=== PATIENT | male | born 1960 | race Caucasian/White ===

== ENCOUNTER → 2017-12-10 | Outpatient (CLI) | payer SELFPAY ==
--- NOTE | 2017-12-10 16:19 | DIREP ---
PROCEDURE:MR SHOULDER WITHOUT CONTRAST [Right] TECHNIQUE:Axial proton density fat sat; sagittal oblique T1 and T2 fat sat; coronal oblique proton density fat sat, T2 and inversion recovery sequences were obtained. Images are somewhat noisy which is attributable to patient's body habitus. COMPARISON:None. INDICATIONS:RIGHT SHOULDER PAIN FINDINGS: Rotator cuff: There is at least high-grade partial tear if not full-thickness tear of the distal anterior supraspinatus tendon measuring 1.44 x 1.14 cm (AP by medial-lateral) on sagittal series 801, image 3 and coronal series 501, image 7. Findings are suspicious for intra substance tear of the infraspinatus series 501, image 15. The teres minor and subscapularis tendons are intact. Coracoacromial arch: The acromion is type I. The acromioclavicular joint is normal. The coracoacromial and coracoclavicular ligaments are intact. The coracoid is normal in configuration. Bones and joints space: Small Hill-Sachs deformity is present in the posterior superior humeral head series 301, image 19. Moderate-sized joint effusion is present. There is either synovial thickening or loose body anterior to the subscapularis tendon measuring 0.93 x 0.58 cm series 301, image 1. Moderate-sized joint effusion. Labrum and capsule: Small tear is present at the base of the posterior superior labrum series 501, image 14. The anterior inferior labrum is torn and is retracted along the medial aspect of the glenoid consistent with ALPSA lesion series 301, image 11. Biceps tendon: The long head of the biceps tendon is normal in signal and morphology and is normally situated in the intertubercular groove. Miscellaneous: There is no muscle edema or atrophy. There is no soft tissue mass lesion. The neurovascular structures are normal. CONCLUSION: 1. High-grade partial if not full-thickness tear of the supraspinatus tendon. 2. Suspicious for intra substance tear of the infraspinatus tendon. 3. Slap 2 tear. 4. Small Hill-Sachs deformity with evidence of ALPSA lesion. 4. Moderate-sized joint effusion with either loose body or thickened synovium anteriorly. Dictated by: Sherwin Ley M.D. on 12/10/2017 at 04:06 PM
== END | disposition home or self-care (01) ==
LOC: MRI 14:36
PROVIDERS: ATTEND Nurse Practitioner Family
DX: S43.491A Other sprain of right shoulder joint, initial encounter (principal); S46.011A Strain of muscle(s) and tendon(s) of the rotator cuff of right shoulder, initial encounter; M25.411 Effusion, right shoulder; X58.XXXA Exposure to other specified factors, initial encounter; Y93.89 Activity, other specified; Y92.89 Other specified places as the place of occurrence of the external cause; Y99.8 Other external cause status
CPT/HCPCS: 73221-RT